=== PATIENT | female | born 1965 | race Caucasian/White ===

== ENCOUNTER 2018-04-17 06:47 | Day surgery (SDC) | payer BC ==
[~2018-04-17 06:47] MED LIST: LACTATED RINGER'S 1,000 ML IV*
[2018-04-17] MEDS ORDERED: PROPOFOL 20 ML (09:27)
[2018-04-17] MEDS ORDERED: LIDOCAINE 2% (SDV) 5 ML INJ (09:27)
[2018-04-17] MEDS ORDERED: MIDAZOLAM 1 MG/ML 2 ML INJ (09:27)
[2018-04-17] MEDS ORDERED: FENTAnyl 50 MCG/ML VIAL (09:27)
[2018-04-17] MEDS ORDERED: CEFAZOLIN 1 GM INJ (09:27)
[2018-04-17] MEDS ORDERED: DEXAMETHASONE 4 MG/ML 1 ML INJ (09:47)
[2018-04-17] MEDS ORDERED: ONDANSETRON 4 MG INJ (09:47)
[2018-04-17] MEDS ORDERED: FAMOTIDINE 20 MG INJ (09:48)
[2018-04-17] MEDS ORDERED: ONDANSETRON 4 MG INJ IV (10:00)
[2018-04-17] MEDS ORDERED: OXYCODONE/ACETAMINOPHEN (5/325) TAB PO ×2 (10:00)
[2018-04-17] MEDS ORDERED: METOCLOPRAMIDE 10 MG INJ IV (10:00)
[2018-04-17] MEDS ORDERED: FENTAnyl 50 MCG/ML VIAL IV ×3 (10:00)
[2018-04-17] MEDS ORDERED: MEPERIDINE 25 MG INJ IV (10:00)
== END 2018-04-17 12:45 | disposition home or self-care (01) ==
LOC: SDS 06:47
DX: T83.32XA Displacement of intrauterine contraceptive device, initial encounter (principal); N72 Inflammatory disease of cervix uteri; Y83.8 Other surgical procedures as the cause of abnormal reaction of the patient, or of later complication, without mention of misadventure at the time of the procedure
CPT/HCPCS: 58558; 88300; 88305

== ENCOUNTER 2019-05-02 21:51 | Emergency (ER) | payer BC | END 2019-05-03 01:02 | disposition home or self-care (01) | LOC: FTE 05-03 01:02 | DX: R30.0 Dysuria (principal) | CPT/HCPCS: 81003; 99282 ==